=== PATIENT | female | born 1980 | race Hispanic/Latino ===

== ENCOUNTER 2017-11-11 07:04 | Observation (INO) | payer OTHER ==
[~2017-11-11] VITALS: Ht 157.5 cm; Wt 69.4 kg
[~2017-11-11 07:04] MED LIST: AMOXICILLIN500 M1 PO; BENTYL10 MG PO; NUVARING1 ICR VG; PROCTOSOL-HC2.5% RC; ZOFRAN4 M1 SL
--- NOTE | 2017-11-11 08:20 | ED NEURO DEFICIT/STROKE ---
History of Present Illness General Chief Complaint: General Adult Stated Complaint: LFT SIDED FACE AND ARM TINGILING "WAKING UP NOW" Source: patient Exam Limitations: no limitations Vital Signs & Intake/Output Vital Signs & Intake/Output Vital Signs Date Time Temp Pulse Resp B/P B/P Pulse O2 O2 Flow FiO2 Mean Ox Delivery Rate 11/12 0801 98.9 82 18 102/70 99 Room Air 11/11 2158 98.3 78 20 100/70 98 ED Intake and Output 11/12 0000 11/11 1200 Intake Total 1270 Output Total Balance 1270 Intake, IV 400 Intake, Oral 870 Patient 153 lb 153 lb Weight Weight Reported by Patient Measurement Method Allergies Coded Allergies: NO KNOWN ALLERGIES (10/14/15) Triage Note: PT STATES THAT SHE WAS SLEEPING ON HER L SIDE AND WHEN SHE WOKE SHE NOTED THAT HER L ARM AND L SIDE OF FACE HAD PINS AND NEEDLES, RESOLVING NOW. PT CONCERNED DUE TO SHE FELL LAST WEEK AND HAS A BIG BRUISE TO HER LLE. DENIES PAIN , PT ALERT AND ORIENTED SPEECH CLEAR AND EQUAL BILATERAL HAND GRASP NOTED. PT AMBULATED WITH STEADY GAIT. Triage Nurses Notes Reviewed? yes Onset: Abrupt Duration: minute(s):, hour(s): Timing: single episode today New Weakness: none Altered Sensations: LUE, left facial Vision Problem? No : No Patient currently breastfeeds: No HPI: Mrs Albarran is a 37-year-old lady with no PMH who presents today with complaints of new onset left facial and left upper extremity numbness. She first noticed the symptoms this morning around 5:30 AM when she woke up with what she describes as a numb sensation in her left upper extremity that lasted approximately 1 hour along with this left lower face numbness around the lip. She denies any weakness or limitations with getting dressed, slurred speech, noticeable facial asymmetry and she was able to drive herself to the emergency room. On initial assessment of the patient the only complaint she has is a tickling sensation on the left lower face around the lips. She denies any recent headaches, blurred vision, choking on food, chest pain, palpitations, shortness of breath, weakness in upper or lower extremities or difficulty with ambulation. Of note, she did suffer a fall in her bathtub approximately 1 week ago striking her left lower extremity around 5 with a bruise that has improved the past 7 days. (Boogie Stein MD) Reconcile Medications Etonogestrel/Ethinyl Estradiol (Nuvaring Vaginal Ring) 0.12 MG -0.015 MG/24 HR VAG.RING 1 EACH VG Q30D control use for 3 weeks, skip for 1 week Hydrocortisone (Proctosol-Hc) 2.5 % CREAM.APPL 1 ANOOP RC TID hemorrhoids apply to affected area(s) Ondansetron (Zofran Odt) 4 MG TAB.RAPDIS 1 TAB SL TID gerd (Shabnam GREY,Blade Quan) Past History Travel History Traveled to [place] past 21 day No Medical History Any Pertinent Medical History? see below for history Neurological: NONE EENT: NONE Cardiovascular: NONE Respiratory: NONE Gastrointestinal: CONSTIPATION HEMMORHOIDS Hepatic: NONE Renal: NONE Musculoskeletal: NONE Psychiatric: NONE Endocrine: NONE Blood Disorders: NONE Cancer(s): NONE ACADEMIC ADVISOR/Reproductive: NONE Tetanus Vaccine: Surgical History Surgical History: unobtainable Psychosocial History What is your primary language Pakistani Tobacco Use: Never used ETOH Use: denies use Illicit Drug Use: denies illicit drug use Family History Comment: Grandparents with CVA in their 60s. Auntie diagnosed with MS 5 years ago Hx Contributory? Yes (Boogie Stein MD) Review of Systems Review of Systems Constitutional: Reports: see HPI. EENTM: Reports: see HPI. Respiratory: Reports: no symptoms. Cardiovascular: Reports: no symptoms. GI: Reports: no symptoms. Genitourinary: Reports: no symptoms. Musculoskeletal: Reports: see HPI. Skin: Reports: see HPI. Neurological/Psychological: Reports: see HPI. (Boogie Stein MD) Physical Exam Physical Exam General Appearance: no apparent distress, alert Head: atraumatic, normal appearance Eyes: Bilateral: PERRL, EOMI. Ears, Nose, Throat: normal ENT inspection, moist mucous membrane, hearing grossly normal Neck: normal inspection, full range of motion Respiratory: normal breath sounds, no respiratory distress, lungs clear Cardiovascular: regular rate/rhythm, normal peripheral pulses, no carotid bruits present Gastrointestinal: normal bowel sounds, soft, non-tender Extremities: normal range of motion, there is a slight bruising on the left medial aspect of the distal lower extremity. Mild tenderness to palpation of the calf. Cranial Nerves: normal hearing, normal speech, PERRL, negative dysmetria, dysdiadochokinesia. Negative Romberg test. Negative Babinski Coordination/Gait: normal finger to nose, normal gait Core Measures CVA/TIA Diagnosis: Yes NIH Stroke Scale NIH Stroke Scale Response Value Level of Consciousness alert 0 LOC Questions answers both correctly 0 LOC Commands obeys both correctly 0 Best Gaze normal 0 Visual Sosa no visual loss 0 Facial Paresis minor 1 Motor Arm - Left no drift 0 Motor Arm - Right no drift 0 Motor Leg - Left no drift 0 Motor Leg - Right no drift 0 Limb Ataxia no ataxia 0 Sensory normal 0 Best Language no aphasia 0 Dysarthria normal articulation 0 Extinction and Inattention no neglect 0 Total 1 Date Last Known Well: 11/11/17 Symptom Start Date: 11/11/17 Symptom Start Time: 05 Swallow Evaluation Pass Swallow eval date 11/11/17 Swallow eval time 0839 Sepsis Present: No Sepsis Focused Exam Completed? No CHADS2 CHADS2 Response Value Stroke or TIA Symptoms Previously yes 2 Total 2 (Boogie Stein MD) Progress Differential Diagnosis: transient ischemic attack Plan of Care: Orders Procedure Date/time Status Discharge Patient 11/12 UN Active Change service to 11/[address] in observation 11/11 [facility] Active Laboratory Tests 11/12/17 0804: Urine Test NEGATIVE 11/12/17 0703: CBC w Diff NO MAN DIFF REQ, RBC 4.86, MCV 88.8, MCH 30.4, RDW 13.0, MPV 7.9, Gran % 70.6, Lymphocytes % 22.5, Monocytes % 5.8, Eosinophils % 0.7, Basophils % 0.4, Absolute Granulocytes 7.6 H, Absolute Lymphocytes 2.4, Absolute Monocytes 0.6, Absolute Eosinophils 0.1, Absolute Basophils 0, PUBS MCHC 34.2 11/12/17 0659: Anion Gap 13, Estimated GFR > 60, BUN/Creatinine Ratio 21.7 Diagnostic Imaging: Viewed by Me: CT Scan. (Boogie Stein MD) Initial ED EKG: NSR, rate (Shabnam GREY,Blade Quan) Departure Departure Time of Disposition: 1102 Disposition: STILL A PATIENT Condition: Stable Clinical Impression Primary Impression: TIA (transient ischemic attack) Referrals: Yung GREY,Jeanette (PCP/Family) Additional Instructions: You are being admitted to the hospital for workup of transient ischemic attack. Departure Forms: Customer Survey General Discharge Information Admission Note Documentation of Exam: Documentation of any treatments & extenuating circumstances including Concerns Regarding Discharge (functional status, medication knowledge or non-compliance, living conditions, etc.) that warrant an admission rather than observation: ] Observation Note Spoke With: Blade Ann MD Physician Advisor Notified: BLADE TORO DO Place Patient In: Non-ED OBS Care Area Rationale for Observation: My rational for observation is as follows . The patient is presenting with symptoms in line with a TIA with residual symptoms. CT findings showing white matter changes in the right cerebellar region. She will require a follow-up CT angiogram and MRI of the brain, continuous telemetry monitoring for 24 hours, echocardiogram and carotid ultrasound to assess vasculature neurology and cardiology input on her management. (Sarita GREY,Boogie) Departure Prescriptions: Current Visit Scripts Ondansetron (Zofran Odt) 1 TAB SL TID #15 TAB Hydrocortisone (Proctosol-Hc) 1 ANOOP RC TID #28.35 GM apply to affected area(s) Etonogestrel/Ethinyl Estradiol (Nuvaring Vaginal Ring) 1 EACH VG Q30D #1 UNIT use for 3 weeks, skip for 1 week Resident Co-Sign Statement Statement: ED Attending supervision documentation- [x] I saw and evaluated the patient. I have also reviewed all the pertinent lab results and diagnostic results. I agree with the findings and the plan of care as documented in the Resident's documentation. Patient presents for evaluation of severe generalized weakness. Patient presents with a fever and tachycardia. Physical examination reveals a week and tired-appearing gentleman in no obvious respiratory distress. Patient is tachycardic. [] I have reviewed the ED Record and agree with the Resident's documentation. [] Additions or exceptions (if any) to the Resident's note and plan are summarized below: [] (Shabnam GREY,Blade Quan)
[2017-11-11 09:00] LABS: ABSOLUTE BASOPHIL COUNT 0.1 /CUMM (0.0-0.2); ABSOLUTE EOSINOPHIL COUNT 0.1 /CUMM (0.0-0.7); ABSOLUTE LYMPH COUNT 2.3 /CUMM (1.2-3.4); ABSOLUTE MONOCYTE COUNT 0.6 /CUMM (0.10-0.60); BASOPHIL % 0.5 % (0.0-2.0); EOSINOPHIL % 0.7 % (0-5); GRANULOCYTE % 69.7 % (42.2-75.2); HEMATOCRIT 47.7 % (37-47); MEAN CORPUSCULAR HGB 29.8 PG (27.0-31.0); MEAN CORPUSCULAR HGB CONC 33.5 G/DL (33.0-37.0); MEAN CORPUSCULAR VOLUME 88.9 FL (81.0-99.0); MEAN PLATELET VOLUME 6.9 FL (7.4-10.4); PLATELET COUNT 263 /CUMM (130-400); RBC DISTRIBUTION WIDTH 13.5 % (11.5-14.5); RED BLOOD CELL CT 5.36 /CUMM (4.20-5.40)
--- NOTE | 2017-11-11 10:02 | CT SCAN REPORT ---
EXAMINATION: CT HEAD WITHOUT CONTRAST CLINICAL INFORMATION: Left arm and facial numbness. COMPARISON: None TECHNIQUE: Contiguous axial imaging was performed from the skull base to vertex without intravenous administration of contrast. DLP: 614 mGy-cm FINDINGS: Within the right cerebellar hemisphere inferiorly on image 15/64 of series 2, there is a 2.2 cm area of hypoattenuation in the. Midline white matter which is asymmetric as compared to the contra lateral side. There is no appreciable mass effect upon the nearby fourth ventricle. There is no evidence of acute intracranial hemorrhage or territorial infarction. No midline shift is seen. Martines to white matter differentiation is well preserved. No extra-axial fluid collections are identified. The ventricles are normal in size. The osseous structures and soft tissues are normal. The mastoid air cells and visualized portions of the paranasal sinuses are well aerated. IMPRESSION: Focal area of asymmetric hypoattenuation in the right cerebellar white matter. Although this may correspond to artifact, further evaluation with MRI of the brain with and without contrast is advised in order to exclude an underlying lesion. No appreciable mass effect, midline shift, extra-axial collection, or acute intracranial hemorrhage.
--- NOTE | 2017-11-11 11:32 | ULTRASOUND REPORT ---
EXAMINATION: DUPLEX BILATERAL CAROTID ULTRASOUND CLINICAL INFORMATION: This is a 37-year-old female with a history of carotid stenosis and TIA, left hand and facial numbness. COMPARISON: None. TECHNIQUE: Real-time ultrasound and Doppler techniques (integrating B-mode 2D vascular images, Doppler spectral analysis and color flow Doppler imaging) were utilized to interrogate the extracranial carotid and vertebral arteries bilaterally. The degree of stenosis determined by criteria similar to NASCET. FINDINGS: Right side: 1. There is no atherosclerotic plaque seen in the ECA/ICA region. 2. The common carotid artery velocity is 82 cm/s. 3. The internal carotid artery velocities are 86 cm/s systolic and 34 cm/s diastolic. 4. The external carotid artery velocity is 110 cm/s. Left side: 1. There is no atherosclerotic plaque seen in the ECA/ICA region. 2. The common carotid artery velocity is 80 cm/s. 3. The internal carotid artery velocities are 76 cm/s systolic and 36 cm/s diastolic. 4. The external carotid artery velocity is 86 cm/s. ADDITIONAL FINDINGS: 1. The vertebral arteries show antegrade flow. IMPRESSION: 1. RIGHT: There is no atherosclerotic plaque or hemodynamically significant stenosis of the proximal right internal carotid artery by velocity criteria. 2. LEFT: There is no atherosclerotic plaque or hemodynamically significant stenosis of the proximal left internal carotid artery by velocity criteria. 3. No evidence for hemodynamically significant stenosis in the external carotid arteries.
--- NOTE | 2017-11-11 12:06 | History & Physical ---
Dinh GREY,Alma Rosadisha 11/11/17 1206: General Information and HPI MD Statement: I have seen and personally examined TIMOTHY DESAI and documented this H&P. The patient is a 37 year old F who presented with a patient stated chief complaint of [numbness and tingling of face]. Source of Information: patient, family Exam Limitations: no limitations History of Present Illness: This is a 37 yo female with no known PMH other than gestational diabetes who comes in with CC of tingling and numbness in l. side of face around mouth and in her l. arm after sleeping on her l. side. She woke up this morning with the sensation which lasted several hours and then remitted. No other associated symptoms during the onset and duration of numbness. During that time she denies any change in vision, headache, dizziness, nausea, vomiting, slurring of speech, facial droop, syncope. She has never a similar sensation before. When the sensation did not got away after a few hours she came to ED for further eval. Her was witness to entire episode and corroborates that he noticed no seizure, syncope, facial droop or any change in mental status. While I was taking history pt did endorse of new onset frontal headache in ED that seemed to get better after she took OTC pain med. She recently fell in bath tub due to clear cut slip/fall and sustained bruise in left leg. Denies recent contacts, travel or recent illness. Fam hx significant for CVA in both grandparents in their sixties. An aunt has MS. Father with cholesterol. No known bleeding or clotting problems. Soc hx significant for occasional etoh, no smoking no IVDA. She uses birthcontrol (nuva ring). Has had two pregnancies without complications. Note, that I asked family to step out and asked if pt would like to disclose any further details and she denied. Upon reviewing Med claim hx there is a claim for Valacyclovir on 03/07/17. Currently takes no meds. NKDA. Allergies/Medications Allergies: Coded Allergies: NO KNOWN ALLERGIES (10/14/15) Past History Travel History Traveled to [place] past 21 day No Medical History Neurological: NONE EENT: NONE Cardiovascular: NONE Respiratory: NONE Gastrointestinal: CONSTIPATION HEMMORHOIDS Hepatic: NONE Renal: NONE Musculoskeletal: NONE Psychiatric: NONE Endocrine: NONE Blood Disorders: NONE Cancer(s): NONE CONSUMER SCIENCE TEACHER/Reproductive: NONE Tetanus Vaccine: Surgical History Surgical History: unobtainable Past Family/Social History Psychosocial History ETOH Use: denies use Illicit Drug Use: denies illicit drug use Review of Systems Review of Systems Constitutional: Reports: see HPI. Exam & Diagnostic Data Last 24 Hrs of Vital Signs/I&O Vital Signs Date Time Temp Pulse Resp B/P B/P Pulse O2 O2 Flow FiO2 Mean Ox Delivery Rate 11/11 1202 98.6 11/11 1200 100.6 102 20 127/82 100 Room Air 11/11 1008 99.1 85 20 114/69 100 Room Air 11/11 0857 86 18 117/72 99 Room Air Room Air 11/11 0711 99.1 98 16 132/80 100 Room Air Intake & Output 11/11 1600 11/11 0800 11/11 0000 Intake Total Output Total Balance Patient 69.4 kg Weight Physical Exam General Appearance Alert, Oriented X3, Cooperative, No Acute Distress Skin No Rashes, No Significant Lesion HEENT Atraumatic, PERRLA, EOMI, Mucous Membr. moist/pink Neck Supple, No LAD Cardiovascular Regular Rate, Normal S1, Normal S2, No Murmurs Lungs Clear to Auscultation, Normal Air Movement Abdomen Soft, No Tenderness Neurological Normal Gait, Normal Speech, Strength at 5/5 X4 Ext, Normal Tone, Sensation Intact, Cranial Nerves 3-12 NL, No cerebellar signs such as romberg, finger to nose; nml gait and heel to toe. Last 24 Hrs of Labs/Akshat: Laboratory Tests 11/11/17 0844: Anion Gap 12, Estimated GFR > 60, BUN/Creatinine Ratio 16.7, Glucose 91, Hemoglobin A1c 4.9, Calcium 9.7, Total Bilirubin 0.6, AST 26, ALT 46, Alkaline Phosphatase 76, Total Protein 7.6, Albumin 4.4, Globulin 3.2, Albumin/Globulin Ratio 1.4, Triglycerides 154 H, Cholesterol 196, LDL Cholesterol, Calc 87, HDL Cholesterol 79 H, Cholesterol/HDL Ratio 2, TSH &T3 &Free T4 Intrp 0.992, CBC w Diff NO MAN DIFF REQ, RBC 5.36, MCV 88.9, MCH 29.8, RDW 13.5, MPV 6.9 L, Gran % 69.7, Lymphocytes % 22.8, Monocytes % 6.3, Eosinophils % 0.7, Basophils % 0.5, Absolute Granulocytes 7.0 H, Absolute Lymphocytes 2.3, Absolute Monocytes 0.6, Absolute Eosinophils 0.1, Absolute Basophils 0.1, PUBS MCHC 33.5 Assessment/Plan Assessment: This is a 37 yo female with no known PMH who comes in for CC of numbness and tingling in l. side of face and arm. Pt was worked up for CVA and CAT scan in ED showed " focal area of asymetric hypoattenuation in r. cerebellar white matter, " and further correlation with MRI recommended. As such pt admitted to Telemetry unit for further monitoring and work up. PLAN: Numbness and tingling: DDX: TIA, complex migraine, metabolic disturbance, demyelinating disease. Pt has senory symptoms in l. face and arm, but CT showing possible hypoattenuation in r. cerebellar matter. All her sensory symptoms have resolved. She complains of frontal headache which she has had before. * Brain MRI with and without contrast * Echocardiogram * MonitorTelemetry * Aspirin 81 mg * High intensity statin * CTA * TFT * Monitor CBC/BMP * Appreciate neuro consult * A1c * Cholesterol panel FC Heart healthy diet CHEM DVT PPX As Ranked By This Provider Problem List: 1. TIA (transient ischemic attack) Core Measures/Misc (07/13) Acute Coronary Syndrome ACS Diagnosis: No Congestive Heart Failure Congestive Heart Failure Diagnosis No Cerebrovascular Accident CVA/TIA Diagnosis: Yes Date Last Known Well: 11/11/17 Symptom Start Date: 11/11/17 Symptom Start Time: 0530 Swallow Evaluation Pass Current/Past Hx AFib/AFlutter No VTE (View Protocol) VTE Risk Factors Acute Medical Illness No Mechanical VTE Prophylaxis d/t N/A MechProphylax Ordered No VTE Pharm Prophylaxis d/t NA PharmProphylax ordered Sepsis (View protocol) Sepsis Present: No Blade Ann MD 11/11/17 1712: General Information and HPI Allergies/Medications Home Med list Etonogestrel/Ethinyl Estradiol (Nuvaring Vaginal Ring) 0.12 MG -0.015 MG/24 HR VAG.RING 1 EACH VG Q30D control use for 3 weeks, skip for 1 week Hydrocortisone (Proctosol-Hc) 2.5 % CREAM.APPL 1 ANOOP RC TID hemorrhoids apply to affected area(s) Ondansetron (Zofran Odt) 4 MG TAB.RAPDIS 1 TAB SL TID gerd Attending MD Review Statement Attending Statement Attending MD Statement: examined this patient, discuss w/resident/PA/DEVELOPMENT AND PLANNING ENGINEER, agreed w/resident/PA/DEVELOPMENT AND PLANNING ENGINEER, reviewed EMR data (avail) Attending Assessment/Plan: 37F no PMH woke up with tingling of her left arm and the left side of her face. Her left arm resolved after a few hours but her left face tingling persists. No other symptoms. Neuro exam normal. No weakness or cerebellar dysfunction. Does not smoke, +family history for CVA. EKG NSR. CT head shows right cerebellar hypoattenuation that may or may not be artifact. Given ASA in ED. Passed bedside swallow. 1. Left arm paresthesia 2. Left facial paresthesia Plan - Observation in telemetry - MRI head - Neurology consult - ASA and statin - Neuro checks - Echocardiogram - DVT PPx
--- NOTE | 2017-11-11 12:16 | Cons- Neurology ---
General Information and HPI Consulting Request Date of Consult: 11/11/17 Requested By: Hospitalist Reason for Consult: Tingling of the left arm and face Source of Information: patient, family, M.D. Exam Limitations: no limitations History of Present Illness: 37-year-old healthy right-handed woman awoke at 5:30 this morning at which time she had tingling of the left arm and hand and the left lower face. There were no other associated symptoms at that time, including facial droop, speech difficulties, dizziness, gait imbalance. She drove herself to the hospital. She now reports a dull frontal headache which had not been present during the episode of tingling. She reports about once weekly headaches which are pounding in quality and associated with mild sensitivity to light and noise, no nausea vomiting or visual changes, relieved with Advil. Family history is notable for stroke in paternal and maternal grandparents, and multiple sclerosis in a paternal aunt. Allergies/Medications Allergies: Coded Allergies: NO KNOWN ALLERGIES (10/14/15) Home Med List: Amoxicillin 500 MG TAB 1 TAB PO BID ENTERITIS Dicyclomine Hydrochloride (Bentyl) 10 MG CAP 1 TAB PO TID ENTERITIS ETONOGESTREL/ETHINYL ESTRADIOL (Nuvaring Vaginal Ring) 1 ICR ICR 1 EACH VG Q30D CONTROL (Reported) use for 3 weeks, skip for 1 week Hydrocortisone (Proctosol-Hc) 2.5% CRE 1 ANOOP RC TID HEMORRHOIDS apply to affected area(s) Ondansetron (Zofran Odt) 4 MG ODT 1 TAB SL Q4-6 PRN NAUSEA Current Medications: Current Medications Sig/Ivck Start time Last Medication Dose Route Stop Time Status Admin Aspirin 0 .STK-MED ONE 11/11 1128 DC PO Aspirin 325 MG ONCE ONE 11/11 1100 DC 11/11 PO 11/11 1101 1126 Atorvastatin Calcium 40 MG ONCE ONE 11/11 1115 DC 11/11 PO 11/11 1116 1135 Review of Systems Review of Systems: REVIEW OF SYSTEMS: (-) = negative / normal blank = not discussed Neurologic: see HPI Eyes: (-) ENT: (-) Constitutional: (-) CV: (-) Respiratory: (-) /Renal: (-) Musculoskeletal: (-) Skin: (-) Psychiatric: (-) Heme: (-) GI: (-) Allergy/Immune: (-) Endocrine: (-) Other: (-) Past History Travel History Traveled to [place] past 21 day No Medical History Neurological: NONE EENT: NONE Cardiovascular: NONE Respiratory: NONE Gastrointestinal: CONSTIPATION HEMMORHOIDS Hepatic: NONE Renal: NONE Musculoskeletal: NONE Psychiatric: NONE Endocrine: NONE Blood Disorders: NONE Cancer(s): NONE HEAD MVA REACTOR OPERATOR/Reproductive: NONE Surgical History Surgical History: non-contributory Psychosocial History Smoking Status: Never Smoked ETOH Use: denies use Illicit Drug Use: denies illicit drug use Functional Ability ADLs Independent: dressing, eating, toileting, bathing. Ambulation: independent IADLs Independent: shopping, housework, finances, food prep, telephone, transportation , medication admin. 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[employer], administrative technician Exam & Diagnostic Data Vital Signs and I&O Vital Signs Date Time Temp Pulse Resp B/P B/P Pulse O2 O2 Flow FiO2 Mean Ox Delivery Rate 11/11 1202 98.6 11/11 1200 100.6 102 20 127/82 100 Room Air 11/11 1008 99.1 85 20 114/69 100 Room Air 11/11 0857 86 18 117/72 99 Room Air Room Air 11/11 0711 99.1 98 16 132/80 100 Room Air Intake & Output 11/11 1600 11/11 0800 11/11 0000 Intake Total Output Total Balance Patient 153 lb Weight Physical Exam: PHYSICAL EXAMINATION: nl = normal NT or blank = not tested GENERAL Appearance: nl Head: nl Eyes: nl ENT: nl Neck: nl Carotids: nl Lungs: nl Heart: nl Extremities: nl Spine: nl NEUROLOGIC MENTAL STATUS Level of consciousness: nl Orientation: nl Attention / Concentration: nl Memory: nl Fund of Knowledge: nl Speech / Language: nl NEUROLOGIC CRANIAL NERVES I: Olfaction: NT II: Optic nerves: nl Visual isidro: nl III: Pupils: nl Levator palpebrae: nl III, IV, : Ocular alignment: nl Extraocular motility: nl Pursuits/ saccades: nl V: Facial sensation: nl Masseter/Pterygoids: nl VII: Facial Motor: nl VIII: Hearing (finger rub): nl IX, X: Uvula and palate: nl XI: SCM, Upper trap.: nl XII: Tongue: nl MOTOR / NEUROMUSCULAR Bulk: nl Tone: nl Strength: nl Rapid alternating movements: nl Fine motor movements: nl Abnormal / involuntary movements: none CEREBELLAR / COORDINATION: intact SENSATION: intact DTR's symmetrically 1+ to 2+ PLANTARS: flexor GAIT: Not tested Last 48 Hours of Lab Results: Laboratory Tests 11/11 0844 Chemistry Sodium (137 - 145 mmol/L) 141 Potassium (3.5 - 5.1 mmol/L) 5.0 Chloride (98 - 107 mmol/L) 105 Carbon Dioxide (22 - 30 mmol/L) 23 Anion Gap (5 - 16) 12 BUN (7 - 17 mg/dL) 10 Creatinine (0.5 - 1.0 mg/dL) 0.6 Estimated GFR (>60 ml/min) > 60 BUN/Creatinine Ratio (7 - 25 %) 16.7 Glucose (65 - 99 mg/dL) 91 Hemoglobin A1c (4.2 - 5.8 %) Pending Calcium (8.4 - 10.2 mg/dL) 9.7 Total Bilirubin (0.2 - 1.3 mg/dL) 0.6 AST (14 - 36 U/L) 26 ALT (9 - 52 U/L) 46 Alkaline Phosphatase (<127 U/L) 76 Total Protein (6.3 - 8.2 g/dL) 7.6 Albumin (3.5 - 5.0 g/dL) 4.4 Globulin (1.9 - 4.2 gm/dL) 3.2 Albumin/Globulin Ratio (1.1 - 2.2 %) 1.4 Triglycerides (<150 mg/dL) 154 H Cholesterol (<200 MG/DL) 196 LDL Cholesterol, Calc (65 - 129 mg/dL) 87 HDL Cholesterol (40 - 60 mg/dL) 79 H Cholesterol/HDL Ratio (0.00 - 4.23 %) 2 TSH &T3 &Free T4 Intrp (0.270 - 4.20 uIU/mL) 0.992 Hematology CBC w Diff NO MAN DIFF REQ WBC (4.8 - 10.8 /CUMM) 10.0 RBC (4.20 - 5.40 /CUMM) 5.36 Hgb (12.0 - 16.0 G/DL) 16.0 Hct (37 - 47 %) 47.7 H MCV (81.0 - 99.0 FL) 88.9 MCH (27.0 - 31.0 PG) 29.8 RDW (11.5 - 14.5 %) 13.5 Plt Count (130 - 400 /CUMM) 263 MPV (7.4 - 10.4 FL) 6.9 L Gran % (42.2 - 75.2 %) 69.7 Lymphocytes % (20.5 - 51.1 %) 22.8 Monocytes % (1.7 - 9.3 %) 6.3 Eosinophils % (0 - 5 %) 0.7 Basophils % (0.0 - 2.0 %) 0.5 Absolute Granulocytes (1.4 - 6.5 /CUMM) 7.0 H Absolute Lymphocytes (1.2 - 3.4 /CUMM) 2.3 Absolute Monocytes (0.10 - 0.60 /CUMM) 0.6 Absolute Eosinophils (0.0 - 0.7 /CUMM) 0.1 Absolute Basophils (0.0 - 0.2 /CUMM) 0.1 PUBS MCHC (33.0 - 37.0 G/DL) 33.5 Imaging/Other Studies: PATIENT: TIMOTHY DEASI PRESENT AGE: 37 PATIENT ACCOUNT NO: [id number] : 82 LOCATION: [facility] ORDERING PHYSICIAN: Boogie Stein MD SERVICE DATE: 11/11/17 EXAM TYPE: CAT - CT HEAD WO IV CONTRAST EXAMINATION: CT HEAD WITHOUT CONTRAST CLINICAL INFORMATION: Left arm and facial numbness. COMPARISON: None TECHNIQUE: Contiguous axial imaging was performed from the skull base to vertex without intravenous administration of contrast. DLP: 614 mGy-cm FINDINGS: Within the right cerebellar hemisphere inferiorly on image 15/64 of series 2, there is a 2.2 cm area of hypoattenuation in the. Midline white matter which is asymmetric as compared to the contra lateral side. There is no appreciable mass effect upon the nearby fourth ventricle. There is no evidence of acute intracranial hemorrhage or territorial infarction. No midline shift is seen. Martines to white matter differentiation is well preserved. No extra-axial fluid collections are identified. The ventricles are normal in size. The osseous structures and soft tissues are normal. The mastoid air cells and visualized portions of the paranasal sinuses are well aerated. IMPRESSION: Focal area of asymmetric hypoattenuation in the right cerebellar white matter. Although this may correspond to artifact, further evaluation with MRI of the brain with and without contrast is advised in order to exclude an underlying lesion. No appreciable mass effect, midline shift, extra-axial collection, or acute intracranial hemorrhage. DICTATED BY: Preston Calzada MD DATE/TIME DICTATED:11/11/17949 LAB NURSE:CLAIR DATE/TIME TRANSCRIBED:11/11/17949 CONFIDENTIAL, DO NOT COPY WITHOUT APPROPRIATE AUTHORIZATION. <Electronically signed in Other Vendor System> SIGNED BY: Preston Calzada MD 11/11/171001 PATIENT: TIMOTHY DESAI PRESENT AGE: 37 PATIENT ACCOUNT NO: [id number] : 82 LOCATION: [facility] ORDERING PHYSICIAN: Boogie Stein MD SERVICE DATE: 11/11/17 EXAM TYPE: US - [id number] DOPPLER EXAMINATION: DUPLEX BILATERAL CAROTID ULTRASOUND CLINICAL INFORMATION: This is a 37-year-old female with a history of carotid stenosis and TIA, left hand and facial numbness. COMPARISON: None. TECHNIQUE: Real-time ultrasound and Doppler techniques (integrating B-mode 2D vascular images, Doppler spectral analysis and color flow Doppler imaging) were utilized to interrogate the extracranial carotid and vertebral arteries bilaterally. The degree of stenosis determined by criteria similar to NASCET. FINDINGS: Right side: 1. There is no atherosclerotic plaque seen in the ECA/ICA region. 2. The common carotid artery velocity is 82 cm/s. 3. The internal carotid artery velocities are 86 cm/s systolic and 34 cm/s diastolic. 4. The external carotid artery velocity is 110 cm/s. Left side: 1. There is no atherosclerotic plaque seen in the ECA/ICA region. 2. The common carotid artery velocity is 80 cm/s. 3. The internal carotid artery velocities are 76 cm/s systolic and 36 cm/s diastolic. 4. The external carotid artery velocity is 86 cm/s. ADDITIONAL FINDINGS: 1. The vertebral arteries show antegrade flow. IMPRESSION: 1. RIGHT: There is no atherosclerotic plaque or hemodynamically significant stenosis of the proximal right internal carotid artery by velocity criteria. 2. LEFT: There is no atherosclerotic plaque or hemodynamically significant stenosis of the proximal left internal carotid artery by velocity criteria. 3. No evidence for hemodynamically significant stenosis in the external carotid arteries. DICTATED BY: Wong Young MD DATE/TIME DICTATED:11/11/171125 LAB NURSE:CLAIR DATE/TIME TRANSCRIBED:11/11/171125 CONFIDENTIAL, DO NOT COPY WITHOUT APPROPRIATE AUTHORIZATION. <Electronically signed in Other Vendor System> SIGNED BY: Wong Young MD 1132 Assessment/Plan Assessment: TIA versus complicated migraine Recommendations: Brain MRI with and without contrast Echocardiogram Telemetry Neuro checks Aspirin 81 mg and low-dose high intensity statin Consult Acknowledgment - Thank you for your consult request.
--- NOTE | 2017-11-11 13:31 | CT SCAN REPORT ---
EXAMINATION: CT ANGIOGRAM BRAIN CLINICAL INFORMATION: 37-year-old woman with left arm and face numbness. COMPARISON: 11/11/[address] TECHNIQUE: Test bolus sequences followed by intravenous administration 124 mL of Optiray 350. Helical imaging was performed in the axial plane from the skull base to the vertex. A delayed postcontrast CT of the head was also performed. The data was processed at the lead cytogenetic technologist's workstation for generation of MIP sequences. Angled MIPs and volume rendered reformatted images were also generated at an offline 3D workstation. Stenoses are assessed in accordance with NASCET criteria unless otherwise indicated. DLP: 1381 mGy-cm FINDINGS: Brain: No intracranial mass, hemorrhage, extra-axial collection, or midline shift is apparent. No pathologic intra-axial enhancement or regional oligemia is visualized. The previously described area of hypodensity in the right cerebellum is less well appreciated, suggesting that it may have been artifactual. The paranasal sinuses remain well aerated. Brain CTA: There is normal opacification of major intracranial arteries. No focal flow-limiting stenosis, discrete proximal large artery occlusion, or saccular intradural aneurysm is identified. There are large bilateral posterior communicating arteries with small left and diminutive right P1 segments. Timing of the contrast allows assessment of the major dural venous sinuses, which all opacify normally. IMPRESSION: Normal CT/CTA of the brain.
--- NOTE | 2017-11-11 13:44 | ECHOCARDIOGRAM REPORT ---
TIMOTHY DESAI Age: 37 : 1980 Gender: F Exam Date: 11/11/2017 10:13 Exam Location: ER Ht (in): 62 Wt (lb): 153 BSA: 1.76 BP: 117 / 72 Ordering Physician: GERRI CALIXTO MD Referring Physician: GERRI CALIXTO MD Technologist: Pb Olvera RDCS Room Number: 1 Indications: TIA Rhythm: Sinus Technical Quality: Good FINDINGS Left Ventricle Normal size left ventricle. Normal left ventricular ejection fraction visually estimated at >60%. Normal left ventricular wall thickness. Normal left ventricular wall motion. Normal left ventricular diastolic filling pattern for age. Right Ventricle Normal right ventricular size and function. Right Atrium Normal right atrial size. Left Atrium Normal left atrial size. Mitral Valve Structurally normal mitral valve. Trace mitral regurgitation. Aortic Valve Structurally normal trileaflet aortic valve. No aortic regurgitation. No aortic stenosis. Tricuspid Valve Tricuspid valve not well visualized, grossly normal. Trace tricuspid regurgitation. Pulmonic Valve Pulmonic valve not well visualized, grossly normal. Pericardium No pericardial effusion. Great Vessels Normal size aortic root and proximal ascending aorta. CONCLUSIONS Normal left ventricular ejection fraction visually estimated at > 60%. Normal left ventricular wall thickness. Trace mitral regurgitation. Trace tricuspid regurgitation. Delio Chou M.D. (Electronically Signed) Final Date: 11 November 2017 13:43 MEASUREMENTS (Male / Female) Normal Values 2D ECHO LV Diastolic Diameter PLAX 4.5 cm 4.2 - 5.9 / 3.9 - 5.3 cm LV Systolic Diameter PLAX 2.6 cm 2.1 - 4.0 cm LV Fractional Shortening PLAX 42.2 % 25 - 46 % LV Ejection Fraction 2D Teich 73.4 % IVS Diastolic Thickness 0.8 cm LVPW Diastolic Thickness 0.8 cm LV Relative Wall Thickness 0.4 RV Internal Dim ED PLAX 2.5 cm 1.9 - 3.8 cm LVOT Diameter 1.8 cm Aortic Root Diameter 2.4 cm LA Systolic Diameter LX 3.0 cm 3.0 - 4.0 / 2.7 - 3.8 cm Ascending Aorta Diameter 2.5 cm DOPPLER AV Peak Velocity 132.0 cm/s AV Peak Gradient 7.0 mmHg AV Mean Velocity 87.6 cm/s AV Mean Gradient 4.0 mmHg AV Velocity Time Integral 28.0 cm LVOT Peak Velocity 90.2 cm/s LVOT Peak Gradient 3.3 mmHg LVOT Mean Velocity 58.3 cm/s LVOT Mean Gradient 2.0 mmHg LVOT Velocity Time Integral 19.4 cm LVOT Stroke Volume 49.4 cm AV Area Cont Eq vti 1.8 cm AV Area Cont Eq pk 1.7 cm MV Peak Velocity 77.2 cm/s MV Peak Gradient 2.4 mmHg MV Mean Velocity 50.2 cm/s MV Mean Gradient 1.0 mmHg Mitral E Point Velocity 75.5 cm/s Mitral A Point Velocity 56.3 cm/s Mitral E to A Ratio 1.3 MV PHT Velocity 84.2 cm/s MV Deceleration [place]win 534.0 cm/s MV Pressure Half Time 47.3 ms MV Area PHT 4.7 cm MV Deceleration Time 275.0 ms PV Peak Velocity 113.0 cm/s PV Peak Gradient 5.1 mmHg PV Mean Velocity 72.5 cm/s PV Mean Gradient 2.0 mmHg PV Velocity Time Integral 24.1 cm LV E' Lateral Velocity 14.7 cm/s Mitral E to LV E' Lateral Ratio 5.1 LV E' Septal Velocity 12.2 cm/s Mitral E to LV E' Septal Ratio 6.2
[2017-11-11] MEDS ORDERED: ZOFRAN ODT4 M1 SL (13:53)
[2017-11-11] MEDS ORDERED: PROCTOSOL-HC28.35 GM RC (13:53)
[2017-11-11] MEDS ORDERED: NUVARING VAGIN1 EACH VG (13:53)
[2017-11-11 15:25] VITALS: BP 100/60
[2017-11-11 21:58] VITALS: BP 100/70
[2017-11-12 08:01] VITALS: BP 102/70
[2017-11-12 08:13] LABS: ABSOLUTE BASOPHIL COUNT 0 /CUMM (0.0-0.2); ABSOLUTE EOSINOPHIL COUNT 0.1 /CUMM (0.0-0.7); ABSOLUTE GRANULOCYTE CT 7.6 /CUMM (1.4-6.5); ABSOLUTE LYMPH COUNT 2.4 /CUMM (1.2-3.4); ABSOLUTE MONOCYTE COUNT 0.6 /CUMM (0.10-0.60); BASOPHIL % 0.4 % (0.0-2.0); EOSINOPHIL % 0.7 % (0-5); GRANULOCYTE % 70.6 % (42.2-75.2); HEMATOCRIT 43.1 % (37-47); MEAN CORPUSCULAR HGB 30.4 PG (27.0-31.0); MEAN CORPUSCULAR HGB CONC 34.2 G/DL (33.0-37.0); MEAN CORPUSCULAR VOLUME 88.8 FL (81.0-99.0); MEAN PLATELET VOLUME 7.9 FL (7.4-10.4); PLATELET COUNT 169 /CUMM (130-400); RED BLOOD CELL CT 4.86 /CUMM (4.20-5.40); WHITE BLOOD CELL COUNT 10.7 /CUMM (4.8-10.8)
--- NOTE | 2017-11-12 08:47 | PN-Observation ---
Danitza GREY,[facility] 11/12/17 0846: Observation Note Observation Note _ I have personally examined TIMOTHY DESAI. her disposition is uncertain at this time. Before a determination can be made, she requires continued observation for the following reasons [left arm weakness and numbness]. Assessment/Plan Assessment: This is a 37 yo female with no known PMH who comes in for CC of numbness and tingling in l. side of face and arm. Pt was worked up for CVA and CAT scan in ED showed " focal area of asymetric hypoattenuation in r. cerebellar white matter, " and further correlation with MRI recommended. Patient is placed in the observation in telemetry. Assessment and plan * Left arm numbness and tingling-initial CAT scan showed a possible hypoattenuation in the right cerebellar white matter. Given the patient's family history of multiple sclerosis and stroke, We will do a echo and MRI with and without contrast today, rule out TIA/complicated migraine. * We will continue aspirin and atorvastatin. Code-full code Diet-regular diet Problem List: 1. TIA (transient ischemic attack) DVT/Prophylaxis: mechanical Discharge Plan Discharge Disposition: home Subjective Follow-up For: Left arm numbness and tingling Complaints: no complaints Tele-Events Since Last Visit: Normal sinus rhythm Review of Systems Constitutional: Reports: no symptoms. Cardiovascular: Reports: no symptoms. Respiratory: Reports: no symptoms. Gastrointestinal: Reports: no symptoms. Genitourinary: Reports: no symptoms. Musculoskeletal: Reports: no symptoms. Objective Last 24 Hrs of Vital Signs/I&O Vital Signs Date Time Temp Pulse Resp B/P B/P Pulse O2 O2 Flow FiO2 Mean Ox Delivery Rate 11/12 0801 98.9 82 18 102/70 99 Room Air 11/11 2158 98.3 78 20 100/70 98 11/11 1525 98.1 90 18 100/60 100 11/11 1455 Room Air 11/11 1350 98.8 95 20 119/61 99 Room Air 11/11 1202 98.6 11/11 1200 100.6 102 20 127/82 100 Room Air 11/11 1008 99.1 85 20 114/69 100 Room Air 11/11 0857 86 18 117/72 99 Room Air Room Air Intake & Output 11/12 1600 11/12 0800 11/12 0000 Intake Total 480 1120 Output Total Balance 480 1120 Intake, IV 400 Intake, Oral 480 720 Physical Exam General Appearance: Alert, Oriented X3, Cooperative, No Acute Distress HEENT: Atraumatic Cardiovascular: Normal S1, Normal S2, No Murmurs Lungs: Clear to Auscultation Abdomen: Normal Bowel Sounds, Soft, No Tenderness Neurological: Normal Speech, Strength at 5/5 X4 Ext, Normal Tone Extremities: No Edema Current Medications: Current Medications Sig/Vick Start time Last Medication Dose Route Stop Time Status Admin Acetaminophen 650 MG Q6P PRN 11/11 1300 AC 11/12 PO 0956 Aspirin 81 MG DAILY 11/12 1000 AC 11/12 PO 0953 Atorvastatin Calcium 40 MG 1700 11/12 1700 AC PO Dextrose/Sodium 1,000 ML ONCE ONE 11/11 1430 DC 11/11 Chloride IV 11/12 0029 1430 Enoxaparin Sodium 40 MG DAILY 11/12 1000 AC 11/12 SC 0956 Ibuprofen 600 MG Q6P PRN 11/11 1300 AC 11/11 PO 1751 Ondansetron HCl 4 MG ONCE ONE 11/11 1430 DC 11/11 IV 11/11 1431 1426 Ondansetron HCl 0 .STK-MED ONE 11/11 1427 DC .ROUTE Oxycodone/ 2 TAB Q6P PRN 11/11 1300 AC Acetaminophen PO Last 24 Hrs of Labs/Mics: Laboratory Tests 11/12/17 0804: Urine Test NEGATIVE 11/12/17 0703: CBC w Diff NO MAN DIFF REQ, RBC 4.86, MCV 88.8, MCH 30.4, RDW 13.0, MPV 7.9, Gran % 70.6, Lymphocytes % 22.5, Monocytes % 5.8, Eosinophils % 0.7, Basophils % 0.4, Absolute Granulocytes 7.6 H, Absolute Lymphocytes 2.4, Absolute Monocytes 0.6, Absolute Eosinophils 0.1, Absolute Basophils 0, PUBS MCHC 34.2 11/12/17 0659: Anion Gap 13, Estimated GFR > 60, BUN/Creatinine Ratio 21.7 Johnny GREY,Napoleon 11/12/17 1158: Observation Note Observation Note _ I have personally examined TIMOTHY DESAI. her disposition is uncertain at this time. Before a determination can be made, she requires continued observation for the following reasons []. Patient seen and examined. No issues overnight. No events on manager solar.Resting comfortably and not in any acute distress. Has no new complaints this morning. Denies headache. On physical examination today she has no focal neurologic deficit. She does admit to history of headaches on and off but denied any headache when her neurologic symptoms started at home. She did admit to having headache while she was in the emergency room. This has since resolved. Workup has been unrevealing. Echocardiogram does not raise concern for thromboembolic disease. Carotid Doppler showed no significant stenosis. CT angiogram did not raise concern for vasculitis. MRI of the brain showed normal appearance with no concern for multiple sclerosis reasons. Problems: -Her neurologic symptoms may have been secondary to a complicated migraine given her previous history. Cerebrovascular disease such as a transient ischemic attack appears less likely given her young age and lack of significant risk factors. Plan: She is medically stable to be discharged home today. She has been advised to follow-up with the neurology service as an outpatient.. She has been advised to return to emergency room should her symptoms recur.
--- NOTE | 2017-11-12 11:39 | MRI REPORT ---
EXAMINATION: MR BRAIN WITHOUT AND WITH CONTRAST CLINICAL INFORMATION: 37-year-old woman with possible CVA. COMPARISON: 11/11/2017 CT/CTA TECHNIQUE: MRI of the brain was obtained using routine sequences before and after the intravenous administration of 7.5 mL of Gadavist. FINDINGS: No focal reduced diffusion is seen to suggest acute or subacute cerebral ischemia. No intracranial mass, intracerebral edema, intra-axial blood products, midline shift, or extra-axial collection is visualized. No pathologic enhancement is appreciated on postcontrast sequences. The ventricles and sulcal spaces appear normal. Normal arterial and venous vascular flow voids are present. The paranasal sinuses are well aerated. IMPRESSION: Normal MR appearance of the brain.
--- NOTE | 2017-11-12 11:53 | Patient Discharge Instructions ---
Discharge Instructions General Discharge Information You were seen/treated for: Probable Complicated Migraine Watch for these problems: In case of any numbness, decreased sensation, tingling, loss of consciousness please go to the nearest ER. Special Instructions: Please follow-up with your primary care provider within 1-2 weeks of discharge and let them know about your recent admission at [facility]. Please follow up with Neurologist within 1-2 weeks after discharge. Diet Continue normal diet: Yes Recommended Diet: Regular Activity Full Activity/No Limits: No Activity Self Limited: Yes Acute Coronary Syndrome Inclusion Criteria At DC or during hospital stay patient has or had the following: ACS DIAGNOSIS No Discharge Core Measures Meds if any: Prescribed or Continued at Discharge Meds if any: NOT Prescribed or Continued at Discharge Congestive Heart Failure Inclusion Criteria At DC or during hospital stay patient has or had the following: CHF DIAGNOSIS No Discharge Core Measures Meds if any: Prescribed or Continued at Discharge Meds if any: NOT Prescribed or Continued at Discharge Cerebrovascular accident Inclusion Criteria At DC or during hospital stay patient has or had the following: CVA/TIA Diagnosis No Discharge Core Measures Meds if any: Prescribed or Continued at Discharge Antithrombotic No Statin (required if LDL =>70) No Anticoagulant No Meds if any: NOT Prescribed or Continued at Discharge Venous thromboembolism Inclusion Criteria VTE Diagnosis No VTE Type NONE VTE Confirmed by (Test) NONE Discharge Core Measures - Per Current guidelines, there needs to be overlap - treatment for the first 5 days of Warfarin therapy. - If discharged on Warfarin prior to 5 days of - overlap therapy, the patient will need to be - assessed for post discharge needs including - *Post discharge parental anticoagulation - *Warfarin and/or parental anticoagulation education - *Follow up date to check INR post discharge At least 5 days overlap therapy as Inpatient No Meds if any: Prescribed or Continued at Discharge Note: Overlap Therapy is Warfarin and Anticoagulant Meds if any: NOT Prescribed or Continued at Discharge
== END 2017-11-12 12:56 ==
LOC: ERH 07:04 → ERHI 11:39 → 1NO 11:39 → ENRESERV 13:19 → ENTRNSPT 14:19 → 1NO 14:53 → EDTRNSPTSTS 14:59 → EDTRNSPT 14:59 → CMPTRNSPT 15:15 → 1NO 11-12 10:24 → ENPENDDIS 11-12 12:02 → 1NO 11-12 12:51
PROVIDERS: Internal Medicine; Student in an Organized Health Care Education/Training Program
DX: R20.2 Paresthesia of skin (principal); K59.00 Constipation, unspecified; Z79.82 Long term (current) use of aspirin; R51 Headache
CPT/HCPCS: 1NP; 6020; 70552; 36415; 70553; 81025; 82436; 93005; 93010; 93306; 96372; 96374; A9579; G0378; J1650; J2405; J3490; J7042